=== PATIENT | female | born 1980 | race Caucasian/White ===

== ENCOUNTER 2019-10-26 20:54 | Emergency (ER) | payer BC, SELFPAY ==
[2019-10-26 20:55] VITALS: BP 133/87; PULSE 90; RESP 18; TEMP 36.7; O2SAT 98; BMI 35.0
--- NOTE | 2019-10-26 21:04 | EKG12_ITS ---
Test Reason : SYNCOPE Blood Pressure : / mmHG Vent. Rate : 098 BPM Atrial Rate : 098 BPM P-R Int : 140 ms QRS Dur : 110 ms QT Int : 360 ms P-R-T Axes : 022 025 -09 degrees QTc Int : 459 ms Normal sinus rhythm T wave abnormality, consider anterior ischemia Abnormal ECG Confirmed by ROSS REECE, JONATHAN ([id number]), assignment editor HOWARD CARLSON ([id number]) on 10/31/2019 2:16:59 PM Referred By: KARRI Confirmed By:PETR HAWKINS MD
--- NOTE | 2019-10-26 21:18 | ED.DCSUM_ITS ---
- ER Visit Summary Date of Service: 10/26/19 Chief Complaint: Near syncope History of Present Illness: The patient is a 39 F history of restless leg, depression anxiety, prior PE after and migraine headaches. Patient's had a hysterectomy. She states today she was feeling well. She had had orange juice and some coffee earlier in the day. Since she was in her kitchen around 130 and had a near syncopal event. Said she never lost consciousness. Prior to the event she felt well. Says she has not slept well with all the anxiety in the world currently due to the pandemic but she did get some sleep last night. Said she is not been ill recently. No headache, no chest pain. No shortness of breath. No abdominal pain. No nausea, vomiting or diarrhea. No melena. No fever. No dysuria. No weight loss. Said the episode itself only lasted a few seconds she did not feel great after, laid on the floor before she got herself up. Denies any head injury. Physical Examination: Middle-aged female no acute distress. Vital signs are stable and afebrile. Pulse ox 90% on room air no signs hypoxia. H EENT exam unremarkable. Atraumatic. Pupils round reactive light. Neck nontender. Lungs clear to auscultation bilaterally. Heart regular rate and rhythm no murmur rate about 95. Chest wall nontender. Abdomen soft nontender. Extremities moves all 4. Calves are nontender without edema or cords. Equal symmetrical radial pulses. Dorsi plantarflexion intact. Normal director of collections and archives strength. Back nontender. Neurologically she is awake alert with no focal motor deficit. Test Results: EKG shows normal sinus rhythm rate of 98 with no acute signs of AL or ischemia. She does have some inverted T waves in V1 through 4. CBC normal. Chemistries normal. Troponin normal. Chest x-ray portable 1 view no acute abnormality read both by myself and the radiologist. Orthostatic vital signs negative. Repeat exam at 10:50 PM patient is doing well. She and I discussed all of her test results. She is comfortable being discharged home. Follow-up with her primary care physician. Return if worse. Emergency Department Course and Treatment: Patient had near syncopal event. Has a normal exam. Will undergo a cardiac work-up with orthostatic vital signs. Treatment Plan: Outpatient follow-up. Return if worse. Disposition: Discharge Impression: Acute near syncope of uncertain etiology This note was generated with [employer] dictation software. It may contain incorrect words, spelling, and punctuation that were not noted in review of the chart prior to signing ED Disposition - Plan for ED Patient: Referrals: NOT,DEFINED [NON-STAFF] -
[2019-10-26 21:27] VITALS: O2SAT 96
--- NOTE | 2019-10-26 21:35 | RAD_ITS ---
STUDY: X-RAY CHEST REASON FOR EXAM: Female, 39 years old. patient had syncopal episode TECHNIQUE: Single AP portable view of the chest. COMPARISON: None. FINDINGS: The lungs are clear and expanded. There is no demonstrated pleural abnormality. Normal size heart. Normal mediastinum and lawrence. Normal visualized pulmonary arteries. Normal visualized aortic arch and descending thoracic aorta. Normal visualized thoracic spine. Normal visualized ribs, clavicles, and shoulders. There is no demonstrated abnormality of the visualized soft tissue structures of the upper abdomen. RAD/Chest 1 View (Portable) IMPRESSION: Normal x-ray examination of the chest. Electronically Signed: Darshan Murrieta MD at 21:48 EDT , Service support ,
[2019-10-26 21:47] LABS: Anion Gap 7 (5-15); BUN 15 mg/dL (7-18); BUN/Creat Ratio 17.3 RATIO (10-20); Calcium,Total 9.6 mg/dL (8.5-10.1); Chloride 111 mmol/L (98-107); Creatinine, Serum 0.87 mg/dL (0.55-1.02); EST Glomerular Filtration Rate 78 mL/min (>60); Est Glom Filt Rate - Afr Amer 94 mL/min (>60); Estimated Creatinine Clearance 73.24 ml/min; Glucose 93 mg/dL (74-106); Potassium 3.6 mmol/L (3.5-5.1); Sodium Level 141 mmol/L (136-145)
[2019-10-26 21:51] LABS: Absolute Lymphocyte Count 3.09 X10^3/uL (0.83-4.51); Absolute Neutrophil Count 4.4 X10^3/uL (2.0-7.7); Basophil# 0.04 X10^3/uL; Basophil% 0.5 % (0-1); Eosinophil# 0.39 X10^3/uL; Eosinophils% 4.6 % (0-5); Hematocrit 39.3 % (37-47); Hemoglobin 13.4 g/dL (12.0-15.0); Lymphocyte # 3.09 X10^3/ul (4.0); Lymphocyte % 36.5 % (19-41); Mean Corp Hgb Conc 34.1 g/dL (32-36); Mean Corpuscular Hgb 30.5 pg (27.0-32.0); Mean Corpuscular Volume 89.5 fL (81-99); Mean Platelet Vol. 9.8 fl (6.2-12.0); Monocyte# 0.56 X10^3/uL; Monocyte% 6.6 % (0-10); NRBC Flagged by Analyzer 0 % (0-5); Neutrophil # 4.35 X10^3/uL (2.7-7.7); Neutrophil % 51.4 % (47-70); Platelet Count 259 K/mm3 (150-450); RBC Distribution Width CV 13.5 % (11.6-14.6); Red Blood Count 4.39 M/mm3 (4.2-5.4); White Blood Count 8.5 K/mm3 (4.4-11.0)
[2019-10-26 22:07] VITALS: BP 119/77; BP 127/81; BP 130/82; PULSE 105; PULSE 80; PULSE 92
[2019-10-26 22:08] VITALS: BP 130/82; PULSE 92; RESP 16; O2SAT 96
--- NOTE | 2019-10-26 22:09 | ED.RN ---
PT REFUSED IV, PER TEMI GROSS RN.
--- NOTE | 2019-10-26 22:54 | ED.DEP ---
ED Disposition - Plan for ED Patient: Disposition: Home or Assisted Living Instructions: ED Near-Fainting Uncertain Cause Referrals: Jesse Muhammad MD [STAFF PHYSICIAN] - 3-5 Days if not improving Additional Instructions: All your labs tonight, EKG and chest x-ray were normal. Follow-up with primary care physician of your choice if not improving. Return if feeling worse.
== END 2019-10-26 23:09 | disposition home or self-care (01) ==
PROVIDERS: Emergency Provider Emergency Medicine; PCP Family Medicine
DX: R55 Syncope and collapse (principal); Z86.711 Personal history of pulmonary embolism; Z90.710 Acquired absence of both cervix and uterus; Z72.0 Tobacco use
CPT/HCPCS: 71045; 80048; 84484; 85025; 93005; 99284; A4216